=== PATIENT | female | born 1985 | race American Indian/Alaskan Native ===

== ENCOUNTER 2019-02-14 20:10 | Inpatient (IN) | payer BC ==
[2019-02-14] MEDS ORDERED: Lidocaine 1% 30 ML SDV INJECT PRN (20:53)
[2019-02-14] MEDS ORDERED: fentaNYL 100 MCG/2 ML SDV IVPUSH PRN (20:53)
[2019-02-14] MEDS ORDERED: Lactated Ringers 500 ML IV ONE (20:53)
[2019-02-14] MEDS ORDERED: Carboprost Tromethamine 250 MCG/1 ML Amp IM PRN (20:53)
[2019-02-14] MEDS ORDERED: Misoprostol 400 MCG (4 X 100 MCG TAB) RECTAL PRN (20:53)
[2019-02-14] MEDS ORDERED: Methylergonovine 0.2 MG/1 ML Amp IM PRN (20:53)
[2019-02-14] MEDS ORDERED: Ondansetron 4 MG/2 ML SDV IV PRN (20:53)
[2019-02-14] MEDS ORDERED: Sodium Chloride 0.9% 10 ML Syringe FLUSH PRN (20:53)
[2019-02-14] MEDS ORDERED: Tranexamic Acid 1,000 MG in Sodium Chloride 0.9% 100 ML IV PRN (20:53)
[2019-02-14] MEDS ORDERED: Oxytocin/Normal Saline 30 UNIT/500 ML BAG IV SCH (21:00)
[2019-02-14] MEDS ORDERED: Lactated Ringers 1,000 ML IV SCH (21:00)
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
[2019-02-15] MEDS ORDERED: Tranexamic Acid 1,000 MG in Sodium Chloride 0.9% 100 ML IV PRN (06:43)
[2019-02-15] MEDS ORDERED: Oxytocin 10 Units/1 ML SDV IM PRN (06:43)
[2019-02-15] MEDS ORDERED: Misoprostol 400 MCG (4 X 100 MCG TAB) RECTAL PRN (06:43)
[2019-02-15] MEDS ORDERED: Measles, Mumps & Rubella Vaccine 0.5 ML SDV SUBCUT ONE (06:43)
[2019-02-15] MEDS ORDERED: Simethicone 80 MG Tab.Chew PO PRN (06:43)
[2019-02-15] MEDS ORDERED: Benzocaine/Menthol 20%-0.5% Spray 56 GM Canister TOP PRN (06:43)
[2019-02-15] MEDS: Ibuprofen 800 MG Tab PO PRN ×2 (08:05→17:55)
[2019-02-15] MEDS: Docusate Sodium 100 MG Cap PO PRN (08:05)
[2019-02-15] MEDS: Prenatal Multivitamin with Calcium/Folic Acid/Iron Tab PO SCH (08:05)
--- NOTE | 2019-02-15 09:09 | DEL ---
DATE: 02/15/2019 PRE PROCEDURE DIAGNOSES: 1. 39 and 0/7 weeks intrauterine by last menstrual period. 2. 4, para 1-1-1-2. 3. Blood type A negative, rubella nonimmune, group B strep negative. 4. Glucosuria of . 5. History of labor and delivery. 6. Arrest of descent, requiring Pitocin augmentation and artificial rupture of membrane to affect labor. POSTPROCEDURE DIAGNOSES: 1. 39 and 0/7 weeks intrauterine by last menstrual period. 2. 4, para 2-1-1-3. 3. Blood type A negative, rubella nonimmune, group B strep negative. 4. Glucosuria of . 5. History of labor and delivery. 6. Arrest of descent, requiring Pitocin augmentation and artificial rupture of membrane to affect labor. 7. Status post spontaneous vaginal delivery without complication. BRIEF HISTORY: The patient is a 33-year-old female with the above-listed diagnoses, who presented to the hospital at 8 cm dilated around 8:30 in the evening last night. 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 She did allow eventual augmentation with Pitocin, but did not allow artificial rupture of membrane until about 10 to 15 minutes prior to delivery. Once bag of water was broken, her contraction intensity and cervical pressure changed drastically and she was complete and pushed for about 5 minutes before delivery with details as below.Prior to [facility] bedside US confirmed OP, vertex position. DETAILS: With the patient in dorsal lithotomy position, she delivered a viable male in the OA position over intact perineum. There was 1 loose nuchal cord that was tangled around the shoulders, so baby was delivered with more of a somersault maneuver and unrounded from the umbilical cord after he was delivered. Baby was quite wet and had a lot of amniotic fluid in the mouth, which was suctioned immediately and then baby was also dried and stimulated. Once baby was dried easily, he was placed up on mother's abdomen. After 1 minute delay, Three-vessel umbilical cord was doubly clamped and cut, and cord blood sample obtained. Placenta was then delivered by gentle cord traction and concomitant uterine massage, inspected and intact. There were some trailing membranes that were removed with ring forceps. Uterus was then firm and bleeding controlled. Labia and vagina inspected, and she had a very superficial perineal laceration which did not require repair and was hemostatic. She tolerated the procedure well and had only nitrous oxide for pain management. ESTIMATED BLOOD LOSS: 350 mL. FINDINGS: Viable male . scores 9&9 and weight 2935g. COMPLICATIONS: None. FINDINGS: Arrested descent likely due to baby being in the OP position and not able to apply adequate pressure against the cervix. This was resolved with amniotic fluid rupture and return of clear fluid. Her labor then progressed quite nicely thereafter. I advised the patient that at future once she gets to that 8 or so centimeter molly, if she is not continuing to make sufficient progress on her own, artificial rupture would be recommended to expedite delivery. DISPOSITION: Mother and baby to stay in the room to initiate maternal child bonding and expression of breast milk for feeding. [facility] /[id number] MTDZackery
[2019-02-15] MEDS: Acetaminophen 325 MG Tab PO PRN (12:54)
[2019-02-16] MEDS: Ibuprofen 800 MG Tab PO PRN ×2 (02:11→11:01)
[2019-02-16] MEDS: Docusate Sodium 100 MG Cap PO PRN (09:28)
[2019-02-16] MEDS: Acetaminophen 325 MG Tab PO PRN (09:28)
[2019-02-16] MEDS: Prenatal Multivitamin with Calcium/Folic Acid/Iron Tab PO SCH (09:28)
[2019-02-16 11:51] VITALS: BP 111/58; PULSE 53
== END 2019-02-16 12:30 | disposition home or self-care (01) | DRG 560 ==
LOC: DL.OBCHECK 20:10 → DL.OB 20:53 → UNDOADMOB 21:02 → OBSVTOIN 02-15 06:28 → DL.MS 02-15 09:07
PROVIDERS: ADMIT Family Medicine; ATTEND Family Medicine
PROC: 10E0XZZ Delivery of Products of Conception, External Approach (ICD-10-PCS; principal; 2019-02-15)
PROC: 10907ZC Drainage of Amniotic Fluid, Therapeutic from Products of Conception, Via Natural or Artificial Opening (ICD-10-PCS; 2019-02-15)
PROC: 3E0234Z Introduction of Serum, Toxoid and Vaccine into Muscle, Percutaneous Approach (ICD-10-PCS; 2019-02-15)
DX: O62.1 Secondary uterine inertia (principal); Z3A.39 39 weeks gestation of pregnancy; Z37.0 Single live birth; O69.81X0 Labor and delivery complicated by cord around neck, without compression, not applicable or unspecified; O70.9 Perineal laceration during delivery, unspecified; Z23 Encounter for immunization
CPT/HCPCS: 36415; 59409; 85027; 86850; 86900; 86901; 90707; A9270-GY; G0010; J2590; J2790; J7120